=== PATIENT | male | born 1970 | race Caucasian/White ===

== ENCOUNTER 2019-07-14 22:45 | Emergency (ER) | payer BC ==
--- NOTE | 2019-07-14 23:40 | EDM.PDOC ---
ED HPI GENERAL MEDICAL PROBLEM - General Chief Complaint: ENT Problem Stated Complaint: SOB Time Seen by Provider: 07/14/19 23:29 Source of Information: Reports: Patient History Limitations: Reports: No Limitations - History of Present Illness INITIAL COMMENTS - FREE TEXT/NARRATIVE: Patient presents describing a chest tightness/burning sensation beginning approximately 1700 hrs. today. He has had episodes like this in the past and in fact was evaluated at [facility] in [place] last month. He doesn't recall all the details of that visit but states that he was given a prescription for some type of anxiety medication and he has not filled it yet as he previously had a supply of similar medicine. He is here for the opening of the ear season. He has a COPD history and does continue to smoke. He uses an albuterol inhaler and has some type of unspecified/unrecalled maintenance inhaler as well. He does not use a spacer with his albuterol. He denies any other recent changes in health. When he awakens in the morning, he never feels like this. It is only as the day goes on that he becomes more symptomatic. Once he falls asleep, he does not awaken because of respiratory symptoms. Onset: Today Duration: Hour(s): Location: Reports: Chest Quality: Reports: Burning Severity: Mild Improves with: Reports: None Worsens with: Reports: None Associated Symptoms: Reports: No Other Symptoms Anterior Chest Pain Score (Numeric/FACES): 6 - Related Data Allergies Allergy/AdvReac Type Severity Reaction Status Date / Time Penicillins Allergy Cannot Verified 07/14/19 23:03 Remember Home Meds: Home Meds Albuterol Sulfate [Albuterol Sulfate Hfa] 2 puff IH Q4H 07/14/19 [History] Past Medical History HEENT History: Reports: Impaired Vision Cardiovascular History: Reports: Arrhythmia Respiratory History: Reports: Asthma, COPD Musculoskeletal History: Reports: Fracture, Neck Pain, Chronic, Other (See Below ) Other Musculoskeletal History: fracture finger neck fusion Neurological History: Reports: Concussion Psychiatric History: Reports: Anxiety - Infectious Disease History Infectious Disease History: Reports: Chicken Pox Social & Family History - Tobacco Use Smoking Status *Q: Current Every Day Smoker Years of Tobacco use: 35 Packs/Tins Daily: 1.5 Used Tobacco, but Quit: No Second Hand Smoke Exposure: Yes - Caffeine Use Caffeine Use: Reports: Coffee - Alcohol Use Days Per Week of Alcohol Use: 1 Number of Drinks Per Day: 6 Total Drinks Per Week: 6 - Recreational Drug Use Recreational Drug Use: No ED ROS ENT - Review of Systems Review Of Systems: See Below Constitutional: Denies: Night Sweats Respiratory: Reports: Shortness of Breath, Wheezing, Pleuritic Chest Pain, Cough. Denies: Hemoptysis GI/Abdominal: Reports: No Symptoms : Reports: No Symptoms ED EXAM, ENT - Physical Exam Exam: See Below Exam Limited By: No Limitations General Appearance: Alert, No Apparent Distress (He is lying comfortably on the cart in room 5 with his legs crossed.) Mouth/Throat: Normal Oropharynx Respiratory/Chest: Chest Non-Tender, Decreased Breath Sounds, Wheezing. No: Crackles Cardiovascular: Regular Rate, Rhythm Course - Vital Signs Last Recorded V/S: Last Vital Signs Temp 36.6 C 07/14/19 23:13 Pulse 65 07/14/19 23:13 Resp 16 07/14/19 23:13 BP 145/87 H 07/14/19 23:13 Pulse Ox 97 07/14/19 23:13 - Orders/Labs/Meds Orders: Active Orders 24 hr Category Date Time Status RT Aerosol Therapy [RC] ASDIRECTED Care 07/14/19 23:52 Ordered Meds: Medications Discontinued Medications Generic Name Dose Route Start Last Admin Trade Name Christina PRN Reason Stop Dose Admin Albuterol/Ipratropium 3 ml 07/14/19 23:51 07/14/19 23:58 Duoneb 3.0-0.5 Mg/3 Ml NEB 07/14/19 23:52 3 ml ONETIME ONE Administration Prednisone 20 mg 07/15/19 00:50 Prednisone PO 07/15/19 00:51 ONETIME ONE - Re-Assessments/Exams Free Text/Narrative Re-Assessment/Exam: 07/14/19 23:57 Patient will be given a DuoNeb treatment and we will obtain a chest x-ray. We reviewed smoking cessation which seems unlikely at this point in time. I suspect that his symptoms are going to be related to his COPD and he may need to be treated for an exacerbation of same 07/15/19 02:12 Patient felt better following DuoNeb treatment. We discussed use of his rescue and maintenance inhalers and the need to use the albuterol with spacer. I think the symptoms he is describing fit with a mild COPD exacerbation. He was given a single dose of prednisone 20 mg in the department tonight as he will not be able to get to a pharmacy for some time in the morning. 4 additional days of prednisone 20 mg were prescribed along with a prescription for metered-dose inhaler spacer. Albuterol use reviewed with the patient personally. Recheck with primary care depending on how he feels at the end of the prednisone course. Reasons to return to emergency Department reviewed. Departure - Departure Time of Disposition: 00:51 Disposition: Home, Self-Care 01 Condition: Good Clinical Impression: COPD exacerbation - Discharge Information *PRESCRIPTION DRUG MONITORING PROGRAM REVIEWED*: Not Applicable *COPY OF PRESCRIPTION DRUG MONITORING REPORT IN PATIENT JENIFER: Not Applicable Instructions: Chronic Obstructive Pulmonary Disease, [id number] Referrals: PCP,None [Primary Care Provider] - Forms: ED Department Discharge Additional Instructions: Use albuterol rescue inhaler with spacer, 2 puffs every 4 hours as needed for chest tightness or burning, cough, wheezing, shortness of breath area pickup and finish the other 4 days of prednisone but your next dose would not need to be until Wednesday morning, 16 July. Continue your maintenance inhaler as well. Return to ER if feeling worse in anyway otherwise recheck with primary care. - My Orders Last 24 Hours: My Active Orders 07/14/19 23:52 RT Aerosol Therapy [RC] ASDIRECTED - Assessment/Plan Last 24 Hours: My Active Orders 07/14/19 23:52 RT Aerosol Therapy [RC] ASDIRECTED
[2019-07-14] MEDS ORDERED: Albuterol/Ipratropium 3.0-0.5 MG/3 ML Neb Soln NEB ONE (23:51)
--- NOTE | 2019-07-15 00:31 | CRLCR ---
INDICATION: Cough, wheezing, chest tightness COMPARISON: None TECHNIQUE: Frontal and lateral views of the chest FINDINGS: The lungs are clear. There is no pleural effusion or pneumothorax. The cardiomediastinal silhouette is normal. The osseous structures are unremarkable. IMPRESSION: No acute intrathoracic process. Dictated by Shlomo Cadena MD @ Jul 15 2019 12:29AM Signed by Dr. Shlomo Cadena @ Jul 15 2019 12:30AM
[2019-07-15] MEDS ORDERED: predniSONE 20 MG Tab PO ONE (00:50)
== END 2019-07-15 01:03 | disposition home or self-care (01) ==
LOC: JP.ED 22:45
DX: J44.1 Chronic obstructive pulmonary disease with (acute) exacerbation (principal); F17.210 Nicotine dependence, cigarettes, uncomplicated; Z88.0 Allergy status to penicillin; Z79.899 Other long term (current) drug therapy
CPT/HCPCS: 71046; 94640; 99285; A9270; J7620-GY